=== PATIENT | female | born 1985 | race American Indian/Alaskan Native ===

== ENCOUNTER 2018-01-04 10:36 | Outpatient (CLI) | payer MEDICAID ==
--- NOTE | 2018-01-04 13:12 | Ultrasound Report ---
RIGHT BREAST ULTRASOUND: 01/04/18 10:36:00 CLINICAL: Palpable right breast mass for 2 months. COMPARISON: None. FINDINGS: Ultrasound of the right breast demonstrated a benign anechoic cyst with a smooth thin wall at 10 o'clock 10 cm from the nipple. It correlates with the palpable lump and it measures 2.7 x 1.6 x 2.6 cm. The cyst is nontender and she describes no pain. A cyst at 10 o'clock 8 cm from the nipple measures 1.1 x 0.5 x 1.1 cm and a cyst at 6 cm from the nipple at 10 o'clock measures 0.9 x 0.4 x 0.9 cm. Benign cysts at 11 o'clock 9 cm from the nipple measured 0.9 x 0.6 x 0.9 cm and 0.8 x 0.4 x 0.6 cm. IMPRESSION: Benign cysts right breast. BI-RADS 2 - - Benign RECOMMENDATION: Clinical followup and routine mammographic screening based on ACS guidelines.
== END 2018-01-04 10:37 | disposition home or self-care (01) ==
LOC: SPVWC 10:36
PROVIDERS: ATTEND Advanced Practice Midwife
DX: N60.01 Solitary cyst of right breast (principal)